=== PATIENT | male | born 1995 | race Caucasian/White ===

== ENCOUNTER 2020-03-04 02:06 | Emergency (ER) | payer SELFPAY ==
[2020-03-04 02:39] LABS: #Basophils 0.1 thou/uL (0.0-0.2); #Eosinphils 0.4 thou/uL (0.0-0.7); #Lymphocytes 2.6 thou/uL (1.20-3.40); #Monocytes 1.2 thou/uL (0.11-0.59); #Neutrophils 9.4 thou/uL (1.40-6.50); %Basophils 0.4 % (0.0-1.0); %Eosinophils 2.7 % (0.0-10.0); %Lymphocytes 19.1 % (21.0-51.0); %Monocytes 9.1 % (0.0-10.0); %Neutrophils 68.7 % (42.0-75.0); Hemoglobin 14.8 g/dL (14.0-18.0); Mean Corpuscular HGB CONC 34.1 g/dL (32.0-36.0); Mean Corpuscular Hemoglobin 31.3 pg (27.0-31.0); Mean Platelet Volume 8.4 fL (7.4-10.4); Platelet Count 265 thou/uL (130-400); Red Blood Cell (RBC) Count 4.73 mill/uL (4.70-6.10); White Blood Cell (WBC) Count 13.6 thou/uL (4.8-10.8)
[2020-03-04 03:02] LABS: ALT (SGPT) 61 U/L (8-55); AST (SGOT) 79 U/L (5-34); Albumin 4.5 g/dL (3.5-5.0); Alkaline Phosphatase 87 U/L (40-110); Anion Gap 16 mmol/L (10-20); BUN (Urea Nitrogen) 10 mg/dL (8.9-20.6); Bilirubin, Total 0.8 mg/dL (0.2-1.2); Calc. Creatinine Clearance 0 mL/min (70-130); Calcium 9.5 mg/dL (7.8-10.44); Carbon Dioxide 26 mmol/L (22-29); Chloride 102 mmol/L (98-107); Estimated GFR-MDRD 76; Globulin 3.2 g/dL (2.4-3.5); Glucose 130 mg/dL (70-105); Lipase 45 U/L (8-78); Potassium 3.7 mmol/L (3.5-5.1); Protein, Total 7.7 g/dL (6.0-8.3); Sodium 140 mmol/L (136-145)
[2020-03-04] MEDS ORDERED: Ondansetron ODT 8 MG TAB ONE (03:33)
[2020-03-04] MEDS ORDERED: Lidocaine Viscous Sol 2% 15 ml UD Cup ONE (03:33)
[2020-03-04] MEDS ORDERED: Mag-Al 1200 mg/1200 mg/30 ML UDCUP ONE (03:33)
--- NOTE | 2020-03-04 09:36 | ULT ---
PRELIMINARY REPORT/[facility]/EMERGENCY AFTER HOURS PROCEDURE EXAM: US Abdomen Limited, Right Upper Quadrant. CLINICAL HISTORY: Epigastric pain, N/V TECHNIQUE: Real-time ultrasound of the right upper quadrant with image documentation. COMPARISON: None provided. FINDINGS: LIVER: Unremarkable. Measures 16.6 cm GALLBLADDER: Cholelithiasis is noted. No wall thickening. No pericholecystic fluid. COMMON BILE DUCT: No dilation. Measures 5.6 mm PANCREAS: Partially obscured by overlying bowel gas. RIGHT KIDNEY: Unremarkable. No hydronephrosis. Measures 11.0 cm IMPRESSION: Cholelithiasis with no sonographic evidence for acute cholecystitis ELECTRONICALLY SIGNED BY: Bunny Costa MD March 04, 2020 4:02:55 AM CDT This report is intended for review by the ordering physician only, in accordance of law. If you recei ve this report in error, please call [facility] at [phone]. FINAL REPORT Final report by Dr. King Emergency after-hours study ULTRASOUND ABDOMEN LIMITED: (RIGHT UPPER QUADRANT) DATE: 03/04/2020 HISTORY: 24-year-old male with epigastric pain, nausea, and vomiting. FINDINGS: Gallbladder:15 mm gallstone in proximal body. Mural thickness normal. No pericholecystic fluid. No ex cessive distention. Common duct: 6 mm. Liver:Normal size and echogenicity. Pancreas:Nonspecific sonographic appearance. Right kidney:No hydronephrosis. IMPRESSION: Cholelithiasis. Agree with preliminary report by [facility]. Transcribed Date/Time: 03/04/2020 9:43 AM
== END 2020-03-04 04:20 | disposition home or self-care (01) ==
LOC: ERS 02:06
DX: K80.20 Calculus of gallbladder without cholecystitis without obstruction (principal); F90.9 Attention-deficit hyperactivity disorder, unspecified type; K21.9 Gastro-esophageal reflux disease without esophagitis
CPT/HCPCS: 36415; 76705; 80053; 83690; 85025; Q0162

== ENCOUNTER 2020-03-04 07:33 | Day surgery (SDC) | payer SELFPAY ==
[2020-03-04] MEDS ORDERED: Ketorolac Tromethamine 30 MG/ML VIAL ONE ×2 (07:54→08:02)
[2020-03-04 08:18] LABS: #Lymphocytes 1.3 thou/uL (1.20-3.40); #Monocytes 0.8 thou/uL (0.11-0.59); %Basophils 0.4 % (0.0-1.0); %Eosinophils 0.4 % (0.0-10.0); %Lymphocytes 12.5 % (21.0-51.0); %Monocytes 7.9 % (0.0-10.0); %Neutrophils 78.8 % (42.0-75.0); Hemoglobin 15.3 g/dL (14.0-18.0); Mean Corpuscular HGB CONC 33.6 g/dL (32.0-36.0); Mean Corpuscular Volume 92.4 fL (78.0-98.0); Mean Platelet Volume 8.5 fL (7.4-10.4); Platelet Count 247 thou/uL (130-400); RBC Distribution Width 11.1 % (11.5-14.5); Red Blood Cell (RBC) Count 4.93 mill/uL (4.70-6.10); White Blood Cell (WBC) Count 10.2 thou/uL (4.8-10.8)
[2020-03-04 08:58] LABS: ALT (SGPT) 236 U/L (8-55); AST (SGOT) 294 U/L (5-34); Albumin 4.7 g/dL (3.5-5.0); Alkaline Phosphatase 97 U/L (40-110); Anion Gap 14 mmol/L (10-20); BUN (Urea Nitrogen) 9 mg/dL (8.9-20.6); Calc. Creatinine Clearance 0 mL/min (70-130); Carbon Dioxide 28 mmol/L (22-29); Chloride 101 mmol/L (98-107); Estimated GFR-MDRD 81; Globulin 3.4 g/dL (2.4-3.5); Glucose 161 mg/dL (70-105); Potassium 4.1 mmol/L (3.5-5.1); Protein, Total 8.1 g/dL (6.0-8.3); Sodium 139 mmol/L (136-145)
[2020-03-04] MEDS ORDERED: Piperacillin/Tazobactam 4.5 GM VIAL ONE (09:42)
[2020-03-04] MEDS ORDERED: Lidocaine 1% PF 5 ML VIAL ONE (11:43)
[2020-03-04] MEDS ORDERED: Dexamethasone 20 MG/5 ML VIAL ONE (11:43)
[2020-03-04] MEDS ORDERED: PROPOFOL 200 MG/20 ML VIAL ONE (11:43)
[2020-03-04] MEDS ORDERED: Ondansetron PF 4 MG/2 ML Vial ONE (11:43)
[2020-03-04] MEDS ORDERED: Glycopyrrolate 0.2 MG/ML 5 ML SYRINGE ONE (11:43)
[2020-03-04] MEDS ORDERED: Esmolol 100 MG/10 ML VIAL ONE (11:43)
[2020-03-04] MEDS ORDERED: Rocuronium Bromide 10 MG/ML (10ML VIAL) ONE (11:43)
[2020-03-04] MEDS ORDERED: PHENYLEPHRINE-NS 100 MCG/ML 10 ML SYRINGE ONE (11:43)
[2020-03-04] MEDS ORDERED: Iothalamate Meglumine 60% 30 ML VIAL FS ONE (12:42)
[2020-03-04] MEDS ORDERED: Bupivacaine 0.25% HCL 30 ML VIAL ONE (12:42)
[2020-03-04] MEDS ORDERED: Lidocaine 1% w/Epinephrine 1:100K 20 ML VIAL ONE (12:42)
[2020-03-04] MEDS ORDERED: Fentanyl 100 MCG/2 ML VIAL ONE (12:53)
[2020-03-04] MEDS ORDERED: SUGAMMADEX SODIUM 200 MG/2 ML VIAL ONE (14:03)
[2020-03-04] MEDS ORDERED: Promethazine HCl 25 MG/ML VIAL IM PRN ×2 (14:19→14:33)
[2020-03-04] MEDS ORDERED: Promethazine HCl 25 MG/ML VIAL SLOW IVP PRN (14:19)
[2020-03-04] MEDS ORDERED: Ondansetron HCl/PF 4 MG/2 ML Vial IVP PRN (14:19)
[2020-03-04] MEDS ORDERED: Meperidine HCl/PF 25 MG/ML VIAL SLOW IVP PRN (14:19)
[2020-03-04] MEDS ORDERED: Mag-Al 1200 mg/1200 mg/30 ML UDCUP PO PRN (14:33)
[2020-03-04] MEDS ORDERED: Morphine 4 MG/ML VIAL SLOW IVP PRN (14:33)
[2020-03-04] MEDS ORDERED: Calcium Carbonate 500 MG ChewTAB PO PRN (14:33)
[2020-03-04] MEDS ORDERED: hydrALAZINE 20 MG/ML VIAL SLOW IVP PRN (14:33)
[2020-03-04] MEDS ORDERED: Ondansetron PF 4 MG/2 ML Vial IVP PRN (14:33)
[2020-03-04] MEDS ORDERED: Dextrose 50% Abboject 50 ML SYRINGE SLOW IVP PRN (14:33)
[2020-03-04] MEDS ORDERED: Morphine 2 MG/ML SYRINGE SLOW IVP PRN (14:33)
[2020-03-04] MEDS ORDERED: Dextrose 5% in Water 1,000 ML IV PRN (14:33)
[2020-03-04] MEDS ORDERED: HYDROcodone/Acetaminophen 7.5/325 mg Tablet PO PRN (14:33)
[2020-03-04 15:26] VITALS: BMI 43.8
--- NOTE | 2020-03-04 17:56 | OP ---
DATE OF PROCEDURE: 03/04/2020 PREOPERATIVE DIAGNOSIS: Acute cholecystitis. POSTOPERATIVE DIAGNOSIS: Acute cholecystitis. PROCEDURE PERFORMED: Laparoscopic cholecystectomy with attempted cholangiogram. ANESTHESIA: General. ESTIMATED BLOOD LOSS: Minimal. COMPLICATIONS: None. SPECIMEN: Gallbladder. FINDINGS: Cholangiogram not able to be performed. The cystic duct is sufficiently scarred into where catheter was not able to be passed. DESCRIPTION OF PROCEDURE: The patient was taken to the operating room and laid supine on the operating room table. After general anesthetic was obtained, the abdomen shaved, prepped, and draped in a sterile fashion. An incision was made above the umbilicus. Cautery was dissected down to and score the fascia. Abdominal cavity was entered bluntly using a Meg clamp. Holding stitch of PDS was placed on each side of fascia. A Edmund trocar was placed. High-flow pneumoperitoneum was obtained. Upper midline, 5-mm ports and two right lower quadrant 5-mm ports were placed under direct visualization. Gallbladder was retracted from the gallbladder fossa. The peritoneum was opened anteriorly and posteriorly. The critical view of triangle was seen showing only the cystic duct and cystic artery ranging medial to lateral. There were no other branching structures. A clip was placed on the cystic duct. A small ductotomy was made just proximal to that. The cholangiocatheter was brought in through a separate stab incision. Multiple attempts of passing it into the cystic duct were unsuccessful. The cystic duct was highly scarred in and the lumen was very small. Decision was made to abort the cholangiogram. Two clips were placed proximally and one distally and the cystic duct was cut using laparoscopic scissors. Cystic artery was taken using the same. Cautery was used to dissect the gallbladder our of the gallbladder fossa. Gallbladder was placed in an Endo Catch bag and brought out through the Edmund. All port sites were infiltrated using local anesthetic. The right upper quadrant was irrigated. There was no ongoing bleeding. No evidence of injury to any intraabdominal structure. All port sites were removed under camera visualization. Pneumoperitoneum was let down. PDS was used to close the fascia above the umbilicus. All incisions were irrigated and closed using 4-0 Monocryl and Dermabond. The patient was sent to Recovery in stable condition. All sponge counts, needle counts, and lap counts were correct. Job ID: [id number]
[2020-03-04] MEDS: Sodium Chloride 0.9% 1,000 ML IV SCH (17:57)
--- NOTE | 2020-03-04 20:16 | HP ---
CHIEF COMPLAINT: Abdominal pain. HISTORY OF PRESENT ILLNESS: This is a 24-year-old male with a history of gallstones found on ultrasound during ER visit yesterday, presented back to the emergency room with intractable pain, nausea, vomiting. No previous known history of gallstones, jaundice, pancreatitis. Pain is described as sharp 8/10 in the right upper abdomen, extends across the middle of the abdomen. Liver tests were increasing and were normal on first presentation, but now elevated. PAST MEDICAL HISTORY: He denies. PAST SURGICAL HISTORY: Appendectomy. MEDICATIONS: Taken daily, none. ALLERGIES: NO KNOWN DRUG ALLERGIES. SOCIAL HISTORY: No smoking or alcohol or other drugs. REVIEW OF SYSTEMS: 10-system review of systems is otherwise negative unless described above. PHYSICAL EXAMINATION: HEENT: Sclerae are anicteric. Oropharynx clear. NECK: No lymphadenopathy. CHEST: Clear. HEART: Regular rate. ABDOMEN: Soft. Tender in the right upper abdomen with localized guarding. No rebound. No ischemia or edema to extremities. LABORATORY DATA: His total bilirubin is elevated at 2 now, AST and ALT are elevated, alkaline phosphatase elevated. Ultrasound shows gallstones, bile duct 5 mm. ASSESSMENT: Acute cholecystitis with elevated liver function tests. PLAN: Laparoscopic cholecystectomy with intraoperative cholangiogram. Risks, benefits, and alternatives discussed. He gives consent. We will do this today. Job ID: [id number]
[2020-03-04] MEDS: Famotidine/PF 20 mg/2ml Vial SLOW IVP SCH (21:37)
[2020-03-04] MEDS: Famotidine 20 MG TAB PO SCH (21:37)
[2020-03-04] MEDS: HYDROcodone/Acetaminophen 7.5/325 mg Tablet PO PRN (21:59)
[2020-03-05] MEDS: Sodium Chloride 0.9% 1,000 ML IV SCH ×2 (01:57→09:02)
[2020-03-05] MEDS: HYDROcodone/Acetaminophen 7.5/325 mg Tablet PO PRN ×2 (04:33→17:19)
[2020-03-05 05:10] LABS: #Lymphocytes 1.3 thou/uL (1.20-3.40); #Neutrophils 8.5 thou/uL (1.40-6.50); %Basophils 0.1 % (0.0-1.0); %Eosinophils 0.2 % (0.0-10.0); %Monocytes 8.9 % (0.0-10.0); %Neutrophils 78.8 % (42.0-75.0); Hemoglobin 13.4 g/dL (14.0-18.0); Mean Corpuscular HGB CONC 32.7 g/dL (32.0-36.0); Mean Corpuscular Hemoglobin 30.5 pg (27.0-31.0); Mean Corpuscular Volume 93.3 fL (78.0-98.0); Mean Platelet Volume 8.2 fL (7.4-10.4); Platelet Count 216 thou/uL (130-400); Red Blood Cell (RBC) Count 4.38 mill/uL (4.70-6.10); White Blood Cell (WBC) Count 10.8 thou/uL (4.8-10.8)
[2020-03-05 05:30] LABS: ALT (SGPT) 553 U/L (8-55); AST (SGOT) 295 U/L (5-34); Albumin 3.9 g/dL (3.5-5.0); Alkaline Phosphatase 96 U/L (40-110); Anion Gap 9 mmol/L (10-20); BUN (Urea Nitrogen) 6 mg/dL (8.9-20.6); Bilirubin, Total 1.6 mg/dL (0.2-1.2); Calc. Creatinine Clearance 220 mL/min (70-130); Carbon Dioxide 27 mmol/L (22-29); Chloride 105 mmol/L (98-107); Estimated GFR-MDRD Greater than 90; Globulin 2.8 g/dL (2.4-3.5); Glucose 109 mg/dL (70-105); Lipase 11 U/L (8-78); Protein, Total 6.7 g/dL (6.0-8.3); Sodium 137 mmol/L (136-145)
[2020-03-05] MEDS: Famotidine 20 MG TAB PO SCH ×2 (07:58→19:53)
[2020-03-05] MEDS: Famotidine/PF 20 mg/2ml Vial SLOW IVP SCH ×2 (08:57→19:56)
--- NOTE | 2020-03-05 09:31 | PRG ---
DATE OF SERVICE: 03/05/2020 SUBJECTIVE: Mr. Chen is postop day #1 lap jyothi with attempted cholangiogram. Mr. Chen has no complaints. He is ambulatory. He is tolerating diet without difficulty. He is afebrile. Vital signs are stable. His abdomen is soft. He is appropriately tender. LABORATORY DATA: White cell count is 10, hemoglobin 13. Sodium 137, potassium 4.0, creatinine is 0.94. Bilirubin 1.6, AST and ALT are 295 and 553. Lipase is normal. ASSESSMENT: History of cholecystitis with elevation of liver function test with attempted cholangiogram that was not able to be done secondary to small size of cystic duct. PLAN: I think he should stay and be sure that his liver tests normalize prior to DC. We will advance his diet today and recheck labs in the morning. Job ID: [id number]
[2020-03-06 05:34] LABS: ALT (SGPT) 350 U/L (8-55); AST (SGOT) 72 U/L (5-34); Albumin 3.8 g/dL (3.5-5.0); Alkaline Phosphatase 87 U/L (40-110); Bilirubin, Direct 0.3 mg/dL (0.1-0.3); Bilirubin, Total 0.5 mg/dL (0.2-1.2); Protein, Total 6.6 g/dL (6.0-8.3)
[2020-03-06] MEDS: Famotidine 20 MG TAB PO SCH (08:27)
[2020-03-06] MEDS: Famotidine/PF 20 mg/2ml Vial SLOW IVP SCH (08:27)
--- NOTE | 2020-03-06 09:37 | PRG ---
DATE OF SERVICE: 03/06/2020 SUBJECTIVE: Mr. Chen has no complaints. His pain is controlled. He is ambulating without difficulty. OBJECTIVE: VITAL SIGNS: He is afebrile. Vital signs are stable. ABDOMEN: Soft and appropriately tender. LABORATORY DATA: His bilirubin is down to 0.5, AST 72, and ALT is 350. ASSESSMENT: Postop laparoscopic cholecystectomy with attempted cholangiogram, unsuccessful cholangiogram with persistent elevation of liver tests, although improved. PLAN: MRCP today. If normal, he will be discharged. Job ID: [id number]
[2020-03-06 12:11] VITALS: BP 121/84; TEMP 98.3
--- NOTE | 2020-03-06 13:34 | MRI ---
EXAM: MRI Abdomen WO Con PROVIDED CLINICAL HISTORY: Elevated LFTs status post cholecystectomy COMPARISON: None FINDINGS: The liver demonstrates no evidence for mass or intrahepatic ductal dilatation. The common duct is non dilated. There is no evidence for filling defect within the common duct to suggest common duct stone. The solid abdominal organs are suboptimally evaluated in the absence of IV contrast material b ut demonstrate an unremarkable unenhanced MR appearance. There is no bowel dilatation, inflammatory fat stranding, free fluid or lymph node enlargement apparent. The gallbladder is surgically absent. R egional marrow and muscular signal appear unremarkable. IMPRESSION: No evidence for choledocholithiasis.
== END 2020-03-06 15:21 | disposition home or self-care (01) ==
LOC: ERS 07:33 → SDC 11:28 → SURG A 11:30 → SDC 03-06 15:21
PROVIDERS: ATTEND Surgery
PROC: 0FT44ZZ Resection of Gallbladder, Percutaneous Endoscopic Approach (ICD-10-PCS; principal; 2020-03-04)
DX: K80.12 Calculus of gallbladder with acute and chronic cholecystitis without obstruction (principal); K83.8 Other specified diseases of biliary tract; R79.89 Other specified abnormal findings of blood chemistry
CPT/HCPCS: 36415; 74181; 80053; 80076; 83690; 85025; 88304; J0694; J1100; J1885; J2001; J2405; J2543; J2704; J3010; S0020; S0028